=== PATIENT | male | born 1945 | race Caucasian/White ===

== ENCOUNTER → 2021-01-12 | Outpatient (CLI) | payer OTHER ==
--- NOTE | 2021-01-13 08:20 | DIREP ---
PROCEDURE:US DUPLEX LOWER EXTREMITY ARTERY BILAT COMPARISON:None. INDICATIONS:CLAUDICATION, HTN, pvd, bilat leg pain TECHNIQUE:A comprehensive color duplex Doppler ultrasound examination of the bilateral lower extremities was performed. Color image and bidirectional spectral Doppler wave form analysis, and peak systolic flow measurements of the common femoral, profunda femoral, superficial femoral, and popliteal arteries were performed. Ankle/brachial indices were measured at the distal posterior tibial artery and anterior tibial/dorsalis pedis. FINDINGS: RIGHT LOWER EXTREMITY: PT MICHELLE: 0.9. AT/DP MICHELLE: 1.1. EXTERNAL ILIAC:Not imaged COMMON FEMORAL:246.6 cm/sBiphasic PROFUNDA FEMORIS:119.2 cm/sMonophasic SUPERFICIAL FEMORAL (prox):124.0 cm/sBiphasic SUPERFICIAL FEMORAL (mid):126.5 cm/sBiphasic SUPERFICIAL FEMORAL (dist):83.4 cm/sTriphasic POPLITEAL (prox):100.8 cm/sTriphasic POPLITEAL (dist):147.6 cm/sBiphasic POSTERIOR TIBIAL (prox):67.1 cm/sBiphasic POSTERIOR TIBIAL (mid):94.4 cm/sBiphasic POSTERIOR TIBIAL (dist):74.6 cm/sBiphasic PERONEAL (prox):99.6 cm/sBiphasic ANTERIOR TIBIAL (prox):161.4 cm/sBiphasic ANTERIOR TIBIAL (mid):61.9 cm/sBiphasic ANTERIOR TIBIAL (dist):87.9 cm/sBiphasic DORSALIS PEDIS:81.6 cm/sMonophasic LEFT LOWER EXTREMITY: PT MICHELLE: 1.0. AT/DP MICHELLE: 1.0. EXTERNAL ILIAC:Not imaged COMMON FEMORAL:255.2 cm/sBiphasic PROFUNDA FEMORIS:89.2 cm/sMonophasic SUPERFICIAL FEMORAL (prox):167.1 cm/sBiphasic SUPERFICIAL FEMORAL (mid):135.8 cm/sBiphasic SUPERFICIAL FEMORAL (dist):98.2 cm/sBiphasic POPLITEAL (prox):167.3 cm/sBiphasic POPLITEAL (dist):90.8 cm/sBiphasic POSTERIOR TIBIAL (prox):80.5 cm/sMonophasic POSTERIOR TIBIAL (mid):49.6 cm/sBiphasic POSTERIOR TIBIAL (dist):46.4 cm/sBiphasic PERONEAL (prox):46.4 cm/sMonophasic ANTERIOR TIBIAL (prox):117.8 cm/sBiphasic ANTERIOR TIBIAL (mid):90.5 cm/sBiphasic ANTERIOR TIBIAL (dist):126.2 cm/sBiphasic DORSALIS PEDIS:119.0 cm/sBiphasic OTHER: A 3.6 x 1.9 x 3.9 cm complex appearing fluid collection is incidentally noted in the right popliteal fossa. A 4.9 x 1.5 x 2.3 cm complex appearing fluid collection is incidentally noted in the left popliteal fossa. CONCLUSION:Plaque formation with monophasic flow involving the distal popliteal artery, as well as the proximal anterior tibial artery and the dorsalis pedis indicating outflow disease in the right lower extremity. [place] phasic flow involving the common femoral artery and the profunda on the left side along with mono phasic flow involving the proximal popliteal artery, the posterior tibial artery, the coronal trunk and the dorsalis pedis indicating combination of inflow or outflow disease on the left side. If clinically indicated, a follow-up CT angiogram of the lower extremities could be performed to evaluate the morphology of the plaque and the degree of stenosis. ABIs greater than 1.4 indicate noncompressible vessels, likely to have significant peripheral vascular disease (PVD). ABIs of 0.91 to 1.3 indicate no significant obstructive disease. ABIs of 0.41 to 0.90 indicate grade I claudication. ABIs less than 0.4 indicate limb-threatening ischemia of grade I or grade II. % stenosisPSV (cm/s)Velocity ratio0-19<150<[id number]>75>300>4 Dictated by: CADENCE Physician on 01/13/2021 at 07:54 AM ac
== END | disposition home or self-care (01) ==
LOC: RAD 08:32
PROVIDERS: ATTEND Podiatrist
DX: I73.9 Peripheral vascular disease, unspecified (principal)
CPT/HCPCS: 93922; 93925